=== PATIENT | female | born 1965 | race Caucasian/White ===

== ENCOUNTER 2018-06-10 20:45 | Emergency (ER) | payer OTHER ==
[2018-06-10 20:56] VITALS: BP 129/87; PULSE 72; TEMP 98.2; BMI 17.9
[2018-06-10] MEDS ORDERED: SODIUM CHLORIDE 0.9% 500 ML INFUS.BAG IV ONE (21:05)
--- NOTE | 2018-06-10 21:07 | PDOC ---
History of Present Illness - General History Source: Patient Exam Limitations: No Limitations - History of Present Illness Initial Comments: 06/10/18 21:16 The patient is a 52 year old female with a history of UTIs who presents to the emergency department for evaluation of vaginal burning and hematuria. The patient reports an episode of persistent vaginal burning 45 minutes prior to arrival. She reports associated symptoms of dysuria and hematuria, described as bright red. Patient reports her last blood tests were conducted in 11/2017 with her PCP. 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 The patient denies chest pain, shortness of breath, headache, and dizziness. Denies fevers, chills, nausea, vomiting, diarrhea, and constipation. Denies urinary urgency and frequency. Allergies: Codeine Social History: Occasional alcohol use. Former smoker. No reported drug use. Surgical History: Denies. PCP: Dr. Mohan Chen ([phone]) [employer] SHERIFF: Dr. Soto <Oralia Marinelli - Last Filed: 06/10/18 21:16> <Rachel Pelayo - Last Filed: 06/11/18 01:13> - General Chief Complaint: Urinary Problem Stated Complaint: URINARY TRACT INFECTION Time Seen by Provider: 06/10/18 21:00 Past History <Oralia Marinelli - Last Filed: 06/10/18 21:16> - Past Medical History COPD: No Other medical history: ALLERGIES - Suicide/Smoking/Psychosocial Hx Smoking History: Former smoker Have you smoked in the past 12 months: No Information on smoking cessation initiated: No Hx Alcohol Use: Yes (OCCAS) Drug/Substance Use Hx: No Substance Use Type: None <Rachel Pelayo - Last Filed: 06/11/18 01:13> - Past Medical History Allergies/Adverse Reactions: Allergies Allergy/AdvReac Type Severity Reaction Status Date / Time codeine AdvReac Vomiting Verified 06/10/18 21:20 Home Medications: Ambulatory Orders Cephalexin Monohydrate [Keflex -] 500 mg PO Q8H #21 capsule 06/10/18 Fluticasone Propionate [Flonase Allergy Relief] 9.9 ml NS DAILY 06/10/18 Review of Systems - Review of Systems Able to Perform ROS?: Yes Comments:: GENERAL/CONSTITUTIONAL: No fever or chills. No weakness. HEAD, EYES, EARS, NOSE AND THROAT: No change in vision. No ear pain or discharge. No sore throat. CARDIOVASCULAR: No chest pain or shortness of breath. RESPIRATORY: No cough, wheezing, or hemoptysis. GASTROINTESTINAL: No nausea, vomiting, diarrhea or constipation. GENITOURINARY: (+)Vaginal burning. (+)Dysuria. (+)Hematuria. No frequency or change in urination. MUSCULOSKELETAL: No joint or muscle swelling or pain. No neck or back pain. SKIN: No rash NEUROLOGIC: No headache, vertigo, loss of consciousness, or change in strength/ sensation. ENDOCRINE: No increased thirst. No abnormal weight change. HEMATOLOGIC/LYMPHATIC: No anemia, easy bleeding, or history of blood clots. ALLERGIC/IMMUNOLOGIC: No hives or skin allergy. <Oralia Marinelli - Last Filed: 06/10/18 21:16> *Physical Exam - Vital Signs Last Vital Signs Temp Pulse Resp BP Pulse Ox 98.2 F 72 16 129/87 100 06/10/18 20:52 06/10/18 20:52 06/10/18 20:52 06/10/18 20:52 06/10/18 20:52 - Physical Exam Comments: GENERAL: Awake, alert, and fully oriented, in no acute distress HEAD: No signs of trauma EYES: PERRLA, EOMI, sclera anicteric, conjunctiva clear ENT: Auricles normal inspection, hearing grossly normal, nares patent, oropharynx clear without exudates. Moist mucosa NECK: Normal ROM, supple, no lymphadenopathy, JVD, or masses LUNGS: Breath sounds equal, clear to auscultation bilaterally. No wheezes, and no crackles HEART: Regular rate and rhythm, normal S1 and S2, no murmurs, rubs or gallops ABDOMEN: Soft, nontender, normoactive bowel sounds. No guarding, no rebound. No masses EXTREMITIES: Normal range of motion, no edema. No clubbing or cyanosis. No cords, erythema, or tenderness NEUROLOGICAL: Cranial nerves II through XII grossly intact. Normal speech, normal gait SKIN: Warm, Dry, normal turgor, no rashes or lesions noted. <Oralia Marinelli - Last Filed: 06/10/18 21:16> - Vital Signs Last Vital Signs Temp Pulse Resp BP Pulse Ox 98.2 F 72 16 129/87 100 06/10/18 20:52 06/10/18 20:52 06/10/18 20:52 06/10/18 20:52 06/10/18 20:52 <Rachel Pelayo - Last Filed: 06/11/18 01:13> ED Treatment Course - ADDITIONAL ORDERS Additional order review: Laboratory Results 06/10/18 21:05 Urine Color Red Urine Appearance Cloudy Urine pH 8.5 H Ur Specific [place] 1.015 Urine Protein 2+ H Urine Glucose (UA) Negative Urine Ketones Trace Urine Blood 3+ H Urine Nitrite Negative Urine Bilirubin 1+ H Urine Urobilinogen 1.0 Ur Leukocyte Esterase 1+ H <Oralia Marinelli - Last Filed: 06/10/18 21:16> - LABORATORY CBC & Chemistry Diagram: 06/10/18 21:15 06/10/18 21:15 <Rachel Pelayo - Last Filed: 06/11/18 01:13> Medical Decision Making - Medical Decision Making 06/11/18 01:12 Pt comes with dysuria and hematuria that began this afternoon. SHe works out heavily and states that she doesnt hydrate enough. She seems to have a UTI; she was treated with rocephin. 1L NSS given, and all labs including CPK normal. Follow with urology as an outpatient. Home with keflex 500mg TID x 7 days. <Rachel Pelayo - Last Filed: 06/11/18 01:13> *DC/Admit/Observation/Transfer - Attestations Scribe Attestion: Documentation prepared by Oralia Marinelli, acting as medical surgery nurse for Rachel Pelayo MD. <Oralia Marinelli - Last Filed: 06/10/18 21:16> - Discharge Dispostion Decision to Admit order: No <Rachel Pelayo - Last Filed: 06/11/18 01:13> Diagnosis at time of Disposition: UTI (urinary tract infection), Hematuria - Discharge Dispostion Disposition: HOME Condition at time of disposition: Stable - Prescriptions Prescriptions: Cephalexin Monohydrate [Keflex -] 500 mg PO Q8H #21 capsule - Referrals Referrals: Mohan Chen MD [Primary Care Provider] - Mohan Schmidt MD [Staff Physician] - - Patient Instructions Printed Discharge Instructions: Blood in Urine, DI for Urinary Tract Infection (UTI) - Post Discharge Activity Forms/Work/School Notes: Back to Work
[2018-06-10 21:12] LABS: PH,URINE 8.5 (4.5-8); URINE APPEARANCE Cloudy; URINE BILIRUBIN 1+ (NEGATIVE); URINE COLOR Red; URINE GLUCOSE (UA) Negative (NEGATIVE); URINE KETONE Trace (NEGATIVE); URINE LEUK ESTERASE 1+ (NEGATIVE); URINE NITRITE Negative (NEGATIVE); URINE PROTEIN 2+ (NEGATIVE)
[2018-06-10 21:18] LABS: EPI CELLS FEW /HPF; URINE BACTERIA FEW /hpf (NEGATIVE); URINE RBC >100 /hpf (0-3)
[2018-06-10 21:28] LABS: BASO % 1.6 % (0-2.0); EOS % 2.6 % (0-4.5); HEMATOCRIT 36.6 % (32.4-45.2); HEMOGLOBIN 12.5 GM/dl (10.7-15.3); LYMPH % 35.8 % (8-40); MCH 30.3 pg (25.7-33.7); MCHC 34.2 g/dl (32.0-36.0); MEAN CELL VOLUME 88.6 fl (80-96); MEAN PLT VOLUME 8.6 fl (7.5-11.1); MONO % 11.3 % (3.8-10.2); NEUT % 48.7 % (42.8-82.8); PLATELET COUNT 217 K/MM3 (134-434); RBC 4.13 M/mm3 (3.60-5.2); RDW 12.9 % (11.6-15.6); WHITE BLOOD COUNT 5.7 K/mm3 (4.0-10.8)
[2018-06-10 21:44] LABS: ALBUMIN 3.9 g/dl (3.5-5.0); ALK PHOS 49 U/L (32-92); ANION GAP 7 MMOL/L (8-16); BILIRUBIN,TOTAL 0.9 mg/dl (0.2-1.0); BLOOD UREA NITROGEN 20 mg/dl (7-18); CALCIUM 8.8 mg/dl (8.4-10.2); CHLORIDE 103 mmol/L (98-107); CO2 27 mmol/L (22-28); GLUCOSE,RANDOM 103 mg/dl (74-106); POTASSIUM 3.8 mmol/L (3.5-5.1); SGOT/AST 30 U/L (10-42); SGPT/ALT 21 U/L (10-40); SODIUM 137 mmol/L (136-145); TOT PROT 5.9 g/dl (6.4-8.3)
[2018-06-10] MEDS ORDERED: CEFTRIAXONE 1,000 MG in DEXTROSE 5%-WATER - 50 ML IVPB ONE (21:53)
[2018-06-10] MEDS ORDERED: cefTRIAXone SODIUM 1 GM VIAL ONE (21:54)
== END 2018-06-10 22:43 | disposition home or self-care (01) ==
LOC: FER 20:45
PROC: 3E0337Z Introduction of Electrolytic and Water Balance Substance into Peripheral Vein, Percutaneous Approach (ICD-10-PCS; principal; 2018-06-10)
PROC: 3E03329 Introduction of Other Anti-infective into Peripheral Vein, Percutaneous Approach (ICD-10-PCS; 2018-06-10)
DX: N39.0 Urinary tract infection, site not specified (principal); R31.9 Hematuria, unspecified
CPT/HCPCS: 36415; 80053; 81003; 81015; 82550; 85025; 99281-25